=== PATIENT | female | born 1950 | race American Indian/Alaskan Native ===

== ENCOUNTER 2018-12-20 11:58 | Emergency (ER) | payer MEDICARE ==
[2018-12-20 12:09] VITALS: BP 155/79
--- NOTE | 2018-12-20 12:10 | Emergency Department Report ---
ED Rash HPI - HPI Chief Complaint: Skin/Abscess/Foreign Body Stated Complaint: LFT SIDE SPIDER BITE/PAIN Time Seen by Provider: 12/20/18 12:06 Duration: 2 Days Location: Back (nuttock) Rash Symptoms: Yes Blistering, No Itching, No Facial Swelling, No Tongue/Oral Swelling, No Breathing Difficulties, No Choking Sensation, No Wheezing/Dyspnea, No Peeling, No Fever, No Lightheaded, No Malaise, No Myalgias Severity: mild ED Review of Systems ROS: Stated complaint: LFT SIDE SPIDER BITE/PAIN Other details as noted in HPI Comment: All other systems reviewed and negative ED Past Medical Hx - Past Medical History Previous Medical History?: No - Surgical History Past Surgical History?: No - Social History Smoking Status: Never Smoker Substance Use Type: None - Medications Home Medications: Home Medications Medication Instructions Recorded Confirmed Last Taken Type Acyclovir/Hydrocortisone [Xerese 1 applicatio TP 5XD #1 tube 12/20/18 Unknown Rx 5%-1% Cream] Ibuprofen [Motrin] 800 mg PO Q8HR #30 tablet 12/20/18 Unknown Rx valACYclovir [Valtrex] 500 mg PO TID #21 tab 12/20/18 Unknown Rx Rash Exam - Exam General: Vital signs noted. No distress. Alert and acting appropriately. HEENT: No Periorbital Edema, No Conjuctival Injection, No Chemosis, No Perioral Edema, No Tongue Edema, No Uvular Edema, No Compromised Airway, No Drooling Lungs: Yes Good Air Exchange (Normal Breath Sounds), No Wheezes, No Ronchi, No Stridor, No Cough, No Labored Respirations, No Retractions, No Use of Accessory Muscles, No Other Abnormal Lung Sounds Heart: Yes Regular, No Murmur Skin: Yes Maculopapular Rash, Yes Tenderness, Yes Erythema, Yes Other, No Urticarial Rash, No Morbilliform rash, No Bulla(e), No Excoriations, No Weeping, No Edema, No Encrustations Other: Positive: Abdomen Normal, Neurologic Normal, Musculoskeletal Normal ED Course Vital Signs 12/20/18 12:06 Temperature 98.6 F Pulse Rate 91 H Respiratory 18 Rate Blood Pressure 155/79 O2 Sat by Pulse 97 Oximetry ED Medical Decision Making - Medical Decision Making 68 y o femmale presents with herpes zoster rash to left buttock discussed with patient that rash is contagious Discussed to complete all medication as instructed VSS, no acute distress Follow up with PCP within 3-5 days Critical care attestation.: If time is entered above; I have spent that time in minutes in the direct care of this critically ill patient, excluding procedure time. ED Disposition Clinical Impression: Shingles rash Disposition: DC- TO HOME OR SELFCARE Is pt being admited?: No Does the pt Need Aspirin: No Condition: Stable Instructions: Herpes Zoster (ED) Additional Instructions: take medication as prescribed follow up with pcp Prescriptions: Ibuprofen [Motrin] 800 mg PO Q8HR #30 tablet valACYclovir [Valtrex] 500 mg PO TID #21 tab Acyclovir/Hydrocortisone [Xerese 5%-1% Cream] 1 applicatio TP 5XD #1 tube Referrals: PRIMARY CARE,MD [Primary Care Provider] - 3-5 Days [facility] [Outside] - 3-5 Days [facility] [Outside] - 3-5 Days [facility] [Outside] - 3-5 Days Forms: Accompanied Note, Work/School Release Form(ED) Time of Disposition: 12:44
--- NOTE | 2018-12-20 14:23 | Emergency Department Report ---
Blank Doc - Documentation Documentation: called from the pharmacy due to the patients prescription for antiviral/hydroc ortisone cream. pt was diagnosed with shingles by my colleague Dorothy Park PA-C. will change to lidocaine cream to use as needed for pain and prednisone 40 mg daily for 5 days.
== END 2018-12-20 13:06 | disposition home or self-care (01) ==
LOC: ED 11:58
DX: B02.9 Zoster without complications (principal); Z79.899 Other long term (current) drug therapy
CPT/HCPCS: 99282